=== PATIENT | male | born 1985 | race Caucasian/White ===

== ENCOUNTER 2016-12-16 13:28 | Emergency (ER) | payer MEDICAID, OTHER ==
[~2016-12-16] VITALS: Ht 167.6 cm; Wt 90.7 kg
[~2016-12-16 13:28] MED LIST: ASPI81CT89 PO; METF500T2 PO
[2016-12-16 14:02] VITALS: BP 133/77
--- NOTE | 2016-12-16 14:28 | NUR ---
Christiano ordaz in [facility] - 12/16/16 at 1429 by DARLYN Patient to OF.
--- NOTE | 2016-12-16 14:28 | NUR ---
Christiano ordaz in [facility] - 12/16/16 at [address] Atkinson evaluating patient.
--- NOTE | 2016-12-16 14:46 | NUR ---
Patient to OF.
--- NOTE | 2016-12-16 14:49 | NUR ---
PATIENT PRESENTS TO ED WITH CONCERN AFTER EATING AN UNK INSECT WHILE EATING SALAD . PT STATES . DENIES N/V/D; SKIN IS PINK/WARM/DRY; AAOX4 WITH EVEN AND STEADY GAIT; LUNGS CLEAR BL; HR EVEN AND REGULAR; PT DENIES ANY FEVER, CP, SOB, OR COUGH AT THIS TIME; PATIENT STATES PAIN OF 0/10 AT THIS TIME; VSS; PATIENT POSITIONED FOR COMFORT; HOB ELEVATED; BEDRAILS UP X2; BED DOWN. ER MD MADE AWARE OF PT STATUS.
--- NOTE | 2016-12-16 14:49 | NUR ---
Dr. Atkinson evaluating patient.
--- NOTE | 2016-12-16 15:00 | NUR ---
Patient discharged with v/s stable. Written and verbal after care instructions given and explained. Patient alert, oriented and verbalized understanding of instructions. Ambulatory with steady gait. All questions addressed prior to discharge. ID band removed. Patient advised to follow up with PMD.Opportunity to ask questions provided and answered.
[2016-12-16 15:01] VITALS: BP 133/77
== END 2016-12-16 15:00 | disposition home or self-care (01) ==
LOC: MED 14:25
DX: T18.0XXA Foreign body in mouth, initial encounter (principal); F41.9 Anxiety disorder, unspecified; I10 Essential (primary) hypertension; E11.9 Type 2 diabetes mellitus without complications; X58.XXXA Exposure to other specified factors, initial encounter; Y93.89 Activity, other specified; Y92.89 Other specified places as the place of occurrence of the external cause; Y99.8 Other external cause status
CPT/HCPCS: 99283